=== PATIENT | male | born 1970 | race African-American/Black ===

== ENCOUNTER 2025-07-07 04:43 | Emergency (ER) | payer OTHER ==
[~2025-07-07] VITALS: Ht 172.7 cm; Wt 79.4 kg
[2025-07-07 06:50] VITALS: BP 134/91; TEMP 98; O2SAT 98
== END 2025-07-07 06:55 | disposition home or self-care (01) ==
LOC: ER 04:47
DX: F10.10 Alcohol abuse, uncomplicated (principal); E11.9 Type 2 diabetes mellitus without complications